=== PATIENT | female | born 1985 | race Caucasian/White ===

== ENCOUNTER 2017-12-17 13:08 | Emergency (ER) | payer OTHER ==
[~2017-12-17] VITALS: Ht 157.5 cm; Wt 79.5 kg
[2017-12-17 13:38] LABS: APPEARANCE,URINE CLOUDY (CLEAR); BILIRUBIN,URINE NEGATIVE (NEGATIVE); GLUCOSE, URINE (UA) NEGATIVE (NEGATIVE); KETONES,URINE NEGATIVE (NEGATIVE); LEUKOCYTE ESTERASE ,URINE MODERATE (NEGATIVE); NITRATE,URINE NEGATIVE (NEGATIVE); OCCULT BLOOD,URINE MODERATE (NEGATIVE); PROTEIN,URINE POS 1+ (NEGATIVE)
[2017-12-17 13:49] LABS: BACTERIA,URINE Moderate /HPF (None Seen); SQUAMOUS EPITHELIAL CELL,UR Few /LPF (None Seen); WBC,URINE 26-50 /HPF (0-5)
[2017-12-17 14:03] VITALS: BP 121/81
== END 2017-12-17 14:27 | disposition home or self-care (01) ==
LOC: EMS 13:09
DX: N39.0 Urinary tract infection, site not specified (principal); Z98.890 Other specified postprocedural states
CPT/HCPCS: 87086; 99284

== ENCOUNTER 2018-06-25 20:51 | Emergency (ER) | payer OTHER ==
[~2018-06-25] VITALS: Ht 157.5 cm; Wt 78.6 kg
[2018-06-25 21:13] VITALS: BP 132/74
[2018-06-25] MEDS ORDERED: KETOROLAC TROMETHAMINE 30 MG/ML VIAL IM ONE (21:15)
== END 2018-06-25 21:55 | disposition home or self-care (01) ==
LOC: EMS 20:52
DX: S40.812A Abrasion of left upper arm, initial encounter (principal); M54.2 Cervicalgia; M54.9 Dorsalgia, unspecified; V89.2XXA Person injured in unspecified motor-vehicle accident, traffic, initial encounter; Y93.89 Activity, other specified; Y92.89 Other specified places as the place of occurrence of the external cause; Y99.8 Other external cause status
CPT/HCPCS: 96372; 99283; J1885

== ENCOUNTER 2018-09-27 20:04 | Emergency (ER) | payer OTHER ==
[~2018-09-27] VITALS: Ht 157.5 cm; Wt 81.8 kg
[2018-09-27] MEDS ORDERED: CYCLOBENZAPRINE HCL 10 MG TABLET PO ONE (21:00)
[2018-09-27] MEDS ORDERED: LIDOCAINE 5% TRANSDERMAL PATCH TD ONE (21:00)
[2018-09-27] MEDS ORDERED: KETOROLAC TROMETHAMINE 60 MG/2 ML VIAL IM ONE (21:00)
[2018-09-27 21:43] VITALS: BP 116/75
== END 2018-09-27 22:16 | disposition home or self-care (01) ==
LOC: EMS 20:05
DX: S76.312A Strain of muscle, fascia and tendon of the posterior muscle group at thigh level, left thigh, initial encounter (principal); M54.5 Low back pain; X50.0XXA Overexertion from strenuous movement or load, initial encounter; Y93.H1 Activity, digging, shoveling and raking; Y92.096 Garden or yard of other non-institutional residence as the place of occurrence of the external cause; Y99.8 Other external cause status
CPT/HCPCS: 96372; 99283; J1885

== ENCOUNTER 2019-02-21 21:25 | Emergency (ER) | payer OTHER | END 2019-02-21 21:30 | disposition left against medical advice (07) | LOC: EMS 21:26 | DX: M54.2 Cervicalgia (principal); Z53.21 Procedure and treatment not carried out due to patient leaving prior to being seen by health care provider ==

== ENCOUNTER 2019-10-10 19:59 | Emergency (ER) | payer OTHER ==
[~2019-10-10] VITALS: Ht 154.9 cm; Wt 84.1 kg
[2019-10-10] MEDS ORDERED: URISOL PO (20:03)
[2019-10-10 21:08] VITALS: BP 112/59
== END 2019-10-10 21:14 | disposition home or self-care (01) ==
LOC: EMS 19:59
DX: R30.0 Dysuria (principal)
CPT/HCPCS: 81002-TC; Z7502

== ENCOUNTER 2019-11-06 11:43 | Emergency (ER) | payer OTHER ==
[~2019-11-06] VITALS: Ht 157.5 cm; Wt 86.4 kg
[~2019-11-06 11:43] MED LIST: URISOL PO
[2019-11-06 12:39] LABS: ANION GAP 6 mmol/L (8-16); CALCIUM, TOTAL 8.6 mg/dL (8.8-10.5); CARBON DIOXIDE 28 mmol/L (22-29); CHLORIDE 103 mmol/L (98-107); CREATININE 0.83 mg/dL (0.60-1.30); GLOMERULAR FILTR. RATE CALC > 60 mL/min (>60); GLUCOSE,RANDOM 112 mg/dL (70-110); POTASSIUM 3.7 mmol/L (3.5-5.1); SODIUM SERUM 137 mmol/L (136-145); UREA NITROGEN, BLOOD 10 mg/dL (7-18)
[2019-11-06] MEDS ORDERED: METOCLOPRAMIDE HCL 5 MG/ML 2 ML VIAL IVP ONE (12:45)
[2019-11-06] MEDS ORDERED: DiphenhydrAMINE HCL 50 MG/ML VIAL IVP ONE (12:45)
[2019-11-06] MEDS ORDERED: SODIUM CHLORIDE 0.9% 1,000 ML IV ONE (12:45)
[2019-11-06 12:52] LABS: ALANINE AMINOTRANSFERASE 25 U/L (12-78); ALBUMIN 3.3 g/dL (3.4-5.0); ALKALINE PHOSPHATASE 60 U/L (46-116); ASPARTATE AMINOTRANSFERASE 15 U/L (15-37); BILIRUBIN,TOTAL 0.3 mg/dL (0.1-1.0); HCG,QUANTITATIVE < 1 mIU/mL (0-6); LIPASE 66 U/L (73-393); TOTAL PROTEIN, SERUM 7.2 g/dL (6.4-8.2)
[2019-11-06 12:58] LABS: BASOPHILS % (AUTO) 0.8 % (0.0-2.0); EOSINOPHILS % (AUTO) 0.5 % (1.0-6.0); HEMATOCRIT 34.5 % (36-46); HEMOGLOBIN 11.2 g/dL (12.0-16.0); LYMPHOCYTES # (AUTO) 1.6 K/uL (1.0-4.8); LYMPHOCYTES % (AUTO) 15.3 % (22.0-44.0); MEAN CORPUSCULAR HEMOGLOBIN 24.5 pg (26.0-34.0); MEAN CORPUSCULAR HGB CONC 32.4 G/dL (31.0-37.0); MEAN CORPUSCULAR VOLUME 76 fL (80-100); MONOCYTES # (AUTO) 0.4 K/uL (0.1-1.0); MONOCYTES % (AUTO) 4.1 % (2.0-9.0); NEUTROPHILS # (AUTO) 8.4 K/uL (1.8-7.7); NEUTROPHILS % (AUTO) 79.3 % (40.0-70.0); PLATELET COUNT (AUTO) 394 K/uL (150-450); RED BLOOD CELL COUNT(AUTO) 4.57 MIL/uL (4.00-5.20); RED CELL DISTRIBUTION WIDTH 17.3 % (11.5-14.5)
[2019-11-06] MEDS ORDERED: KETOROLAC TROMETHAMINE 30 MG/ML VIAL IVP ONE (14:30)
[2019-11-06 15:28] VITALS: BP 102/58
== END 2019-11-06 15:57 | disposition home or self-care (01) ==
LOC: EMS 11:44
DX: G43.909 Migraine, unspecified, not intractable, without status migrainosus (principal); I10 Essential (primary) hypertension
CPT/HCPCS: 36415; 80053; 83690; 84702; 85025; 96361; 96374; 96375; 99284; J1200; J1885; J2765; J7030

== ENCOUNTER 2019-11-30 04:30 | Emergency (ER) | payer OTHER ==
[~2019-11-30] VITALS: Ht 160 cm; Wt 72.7 kg
[2019-11-30 05:13] LABS: BASOPHILS % (AUTO) 0.2 % (0.0-2.0); EOSINOPHILS % (AUTO) 0.4 % (1.0-6.0); HEMATOCRIT 34.9 % (36-46); HEMOGLOBIN 11.5 g/dL (12.0-16.0); LYMPHOCYTES # (AUTO) 1.3 K/uL (1.0-4.8); LYMPHOCYTES % (AUTO) 15.8 % (22.0-44.0); MEAN CORPUSCULAR HEMOGLOBIN 24.6 pg (26.0-34.0); MEAN CORPUSCULAR HGB CONC 32.8 G/dL (31.0-37.0); MEAN CORPUSCULAR VOLUME 75 fL (80-100); MONOCYTES # (AUTO) 0.4 K/uL (0.1-1.0); NEUTROPHILS # (AUTO) 6.7 K/uL (1.8-7.7); NEUTROPHILS % (AUTO) 78.6 % (40.0-70.0); PLATELET COUNT (AUTO) 388 K/uL (150-450); RED BLOOD CELL COUNT(AUTO) 4.66 MIL/uL (4.00-5.20)
[2019-11-30] MEDS ORDERED: SODIUM CHLORIDE 0.9% 1,000 ML IV ONE (05:15)
[2019-11-30 05:25] LABS: ANION GAP 8 mmol/L (8-16); CALCIUM, TOTAL 8.6 mg/dL (8.8-10.5); CARBON DIOXIDE 27 mmol/L (22-29); CHLORIDE 100 mmol/L (98-107); CREATININE 0.87 mg/dL (0.60-1.30); GLOMERULAR FILTR. RATE CALC > 60 mL/min (>60); GLUCOSE,RANDOM 118 mg/dL (70-110); POTASSIUM 4.2 mmol/L (3.5-5.1); SODIUM SERUM 135 mmol/L (136-145); UREA NITROGEN, BLOOD 14 mg/dL (7-18)
[2019-11-30 05:31] LABS: ALANINE AMINOTRANSFERASE 27 U/L (12-78); ALBUMIN 3.2 g/dL (3.4-5.0); ALKALINE PHOSPHATASE 65 U/L (46-116); ASPARTATE AMINOTRANSFERASE 48 U/L (15-37); BILIRUBIN,TOTAL 0.6 mg/dL (0.1-1.0); TOTAL PROTEIN, SERUM 7.6 g/dL (6.4-8.2)
[2019-11-30] MEDS ORDERED: ACETAMINOPHEN 325 MG TABLET PO ONE (06:00)
[2019-11-30 06:18] VITALS: BP 101/50
== END 2019-11-30 06:51 | disposition home or self-care (01) ==
LOC: EMS 04:30
DX: B34.9 Viral infection, unspecified (principal); R51 Headache; J02.9 Acute pharyngitis, unspecified; R19.7 Diarrhea, unspecified; M79.10 Myalgia, unspecified site; Z20.828 Contact with and (suspected) exposure to other viral communicable diseases
CPT/HCPCS: 87426; 96360; 36415-L1; 36415-TC; 71045-TC

== ENCOUNTER 2020-07-29 14:17 | Emergency (ER) | payer MEDICAID, OTHER ==
[~2020-07-29] VITALS: Ht 157.5 cm; Wt 90.9 kg
[2020-07-29 16:29] VITALS: BP 111/75
[2020-07-29] MEDS ORDERED: ACETAMINOPHEN 325 MG TABLET PO ONE (16:30)
== END 2020-07-29 16:38 | disposition home or self-care (01) ==
LOC: EMS 14:21
DX: S06.0X0A Concussion without loss of consciousness, initial encounter (principal); V43.52XA Car driver injured in collision with other type car in traffic accident, initial encounter; Y93.89 Activity, other specified; Y92.89 Other specified places as the place of occurrence of the external cause; Y99.8 Other external cause status
CPT/HCPCS: 70450; 72125; 99285

== ENCOUNTER 2022-01-05 10:14 | Emergency (ER) | payer MEDICAID ==
[~2022-01-05] VITALS: Ht 157.5 cm; Wt 100.0 kg
[2022-01-05] MEDS ORDERED: KETOROLAC TROMETHAMINE 60 MG/2 ML VIAL IM ONE (11:00)
[2022-01-05] MEDS ORDERED: BACLOFEN 10 MG TABLET PO ONE (11:00)
[2022-01-05] MEDS ORDERED: HYDROCODONE/ACETAMINOPHEN 5-325 MG TABLET PO ONE (11:00)
[2022-01-05] MEDS ORDERED: ONDANSETRON HCL 4 MG TABLET PO ONE (13:30)
[2022-01-05] MEDS ORDERED: ACET-2080 PO (13:34)
[2022-01-05] MEDS ORDERED: BACL10TA PO (13:34)
[2022-01-05] MEDS ORDERED: IBUP-1554 PO (13:34)
[2022-01-05 13:44] VITALS: BP 120/72
== END 2022-01-05 13:46 | disposition home or self-care (01) ==
LOC: EMS 10:20
DX: S23.3XXA Sprain of ligaments of thoracic spine, initial encounter (principal); S33.5XXA Sprain of ligaments of lumbar spine, initial encounter; Z98.890 Other specified postprocedural states; V09.20XA Pedestrian injured in traffic accident involving unspecified motor vehicles, initial encounter; Y93.89 Activity, other specified; Y92.89 Other specified places as the place of occurrence of the external cause; Y99.8 Other external cause status
CPT/HCPCS: 99284; 72040; 72070; 72100; 81025; 96372; J1885; Q0162

== ENCOUNTER 2022-03-25 11:12 | Emergency (ER) | payer MEDICAID ==
[~2022-03-25] VITALS: Ht 154.9 cm; Wt 90.9 kg
[~2022-03-25 11:12] MED LIST changes: +ACET-2080 PO; +BACL10TA PO; +IBUP-1554 PO
[2022-03-25 11:22] VITALS: BP 124/78
[2022-03-25 11:31] LABS: COVID AG,FIA SOURCE NASAL SWAB
[2022-03-25] MEDS ORDERED: ALBUTEROL SULFATE HFA 90 MCG/PUFF 8 GM INHALER IH ONE (12:30)
[2022-03-25] MEDS ORDERED: ACETAMINOPHEN 500 MG TABLET PO ONE (12:30)
[2022-03-25 12:44] LABS: INFLUENZA TYPE A NEGATIVE FOR TYPE A (NEGATIVE); INFLUENZA TYPE B NEGATIVE FOR TYPE B (NEGATIVE)
[2022-03-25] MEDS ORDERED: BENZ-70 PO (13:19)
== END 2022-03-25 13:29 | disposition home or self-care (01) ==
LOC: EMS 11:19
DX: R05.9 Cough, unspecified (principal); B34.9 Viral infection, unspecified; Z20.822 Contact with and (suspected) exposure to COVID-19
CPT/HCPCS: 71046; 87804; 94640; 99284; J3535

== ENCOUNTER 2023-07-01 20:54 | Emergency (ER) | payer MEDICAID ==
[~2023-07-01] VITALS: Ht 157.5 cm; Wt 77.3 kg
[~2023-07-01 20:54] MED LIST changes: -ACET-2080 PO; -BACL10TA PO; +BENZ-227 PO; -IBUP-1554 PO; -URISOL PO
[2023-07-01 21:01] VITALS: BP 121/74; PULSE 80; RESP 20; TEMP 98.2
[2023-07-01] MEDS: TraMADol HCL 50 MG TABLET PO ONE (21:09)
[2023-07-01] MEDS ORDERED: CEPH-558 PO (22:46)
== END 2023-07-01 23:09 | disposition home or self-care (01) ==
LOC: EMS 20:57
DX: S61.432A Puncture wound without foreign body of left hand, initial encounter (principal); Z98.890 Other specified postprocedural states; W26.8XXA Contact with other sharp object(s), not elsewhere classified, initial encounter; Y93.89 Activity, other specified; Y92.89 Other specified places as the place of occurrence of the external cause; Y99.8 Other external cause status
CPT/HCPCS: 99283

== ENCOUNTER 2023-08-24 07:22 | Emergency (ER) | payer MEDICAID ==
[~2023-08-24] VITALS: Ht 154.9 cm; Wt 109.1 kg
[~2023-08-24 07:22] MED LIST changes: +CEPH-558 PO
[2023-08-24 07:29] VITALS: TEMP 97.9
[2023-08-24 07:36] LABS: COVID AG,FIA SOURCE NASAL SWAB
[2023-08-24 08:00] LABS: SARS-COV2 (COVID) ANTIGEN,FIA Negative (Negative)
[2023-08-24 08:04] LABS: INFLUENZA TYPE A NEGATIVE FOR TYPE A (NEGATIVE); INFLUENZA TYPE B NEGATIVE FOR TYPE B (NEGATIVE)
[2023-08-24] MEDS: IPRATROPIUM BROMIDE 0.5 MG/2.5 ML NEB SOLUTION NEB ONE (09:34)
[2023-08-24] MEDS: ALBUTEROL SULFATE 2.5 MG/0.5 ML NEB SOLUTION NEB ONE (09:34)
[2023-08-24 09:35] VITALS: PULSE 86; RESP 20; O2SAT 95
[2023-08-24 09:37] VITALS: PULSE 85; RESP 18; O2SAT 95
[2023-08-24] MEDS ORDERED: AZIT250T9 PO (11:27)
[2023-08-24] MEDS ORDERED: ALBU18HF12 IH (11:28)
[2023-08-24] MEDS: ALBUTEROL SULFATE HFA 90 MCG/PUFF 8 GM INHALER IH ONE (11:36)
[2023-08-24 11:37] VITALS: PULSE 68; RESP 16; O2SAT 98
[2023-08-24 11:52] VITALS: BP 120/86; PULSE 62; RESP 16
== END 2023-08-24 11:53 | disposition home or self-care (01) ==
LOC: EMS 07:22
DX: J32.9 Chronic sinusitis, unspecified (principal); J98.4 Other disorders of lung; R05.9 Cough, unspecified; Z20.822 Contact with and (suspected) exposure to COVID-19
CPT/HCPCS: 99285; 71045; 87426; 87804; 94640; J3535

== ENCOUNTER 2023-10-30 09:06 | Emergency (ER) | payer MEDICAID ==
[~2023-10-30] VITALS: Ht 154.9 cm; Wt 109.1 kg
[~2023-10-30 09:06] MED LIST changes: +ALBU18HF12 IH; -BENZ-227 PO; -CEPH-558 PO
[2023-10-30] MEDS ORDERED: IOHEXOL 350 MG/ML 100 ML VIAL ONE (09:30)
[2023-10-30] MEDS ORDERED: SODIUM CHLORIDE 0.9% 100 ML ONE (09:30)
[2023-10-30 09:45] LABS: BASOPHILS % (AUTO) 1.4 % (0.0-2.0); EOSINOPHILS % (AUTO) 2.8 % (1.0-6.0); HEMATOCRIT 29.8 % (36-46); LYMPHOCYTES # (AUTO) 2.1 K/uL (1.0-4.8); LYMPHOCYTES % (AUTO) 21.6 % (22.0-44.0); MEAN CORPUSCULAR HEMOGLOBIN 18.7 pg (26.0-34.0); MEAN CORPUSCULAR HGB CONC 30.3 G/dL (31.0-37.0); MEAN CORPUSCULAR VOLUME 62 fL (80-100); MONOCYTES # (AUTO) 0.4 K/uL (0.1-1.0); MONOCYTES % (AUTO) 4.3 % (2.0-9.0); NEUTROPHILS # (AUTO) 6.9 K/uL (1.8-7.7); NEUTROPHILS % (AUTO) 69.9 % (40.0-70.0); PLATELET COUNT (AUTO) 577 K/uL (150-450); RED BLOOD CELL COUNT(AUTO) 4.83 MIL/uL (4.00-5.20); RED CELL DISTRIBUTION WIDTH 19.7 % (11.5-14.5); WHITE BLOOD COUNT (AUTO) 9.8 K/uL (4.5-11.0)
[2023-10-30] MEDS: MORPHINE SULFATE 2 MG/ML SYRINGE IVP ONE ×2 (09:45→11:13)
[2023-10-30] MEDS: ONDANSETRON HCL 4 MG/2 ML VIAL IVP ONE (09:45)
[2023-10-30] MEDS: SODIUM CHLORIDE 0.9% 1,000 ML IV ONE (09:45)
[2023-10-30 09:55] LABS: ANION GAP 11 mmol/L (8-16); CALCIUM, TOTAL 8.5 mg/dL (8.8-10.5); CARBON DIOXIDE 24 mmol/L (22-29); CHLORIDE 104 mmol/L (98-107); CREATININE 0.93 mg/dL (0.60-1.30); GLOMERULAR FILTR. RATE CALC > 60 mL/min (>60); GLUCOSE,RANDOM 117 mg/dL (70-110); SODIUM SERUM 139 mmol/L (136-145); UREA NITROGEN, BLOOD 10 mg/dL (7-18)
[2023-10-30 10:06] LABS: ALANINE AMINOTRANSFERASE 22 U/L (12-78); ALBUMIN 3.1 g/dL (3.4-5.0); ALKALINE PHOSPHATASE 73 U/L (46-116); ASPARTATE AMINOTRANSFERASE 19 U/L (15-37); BILIRUBIN,TOTAL 0.4 mg/dL (0.1-1.0); HCG,QUANTITATIVE < 1 mIU/mL (0-6); TOTAL PROTEIN, SERUM 7.4 g/dL (6.4-8.2)
[2023-10-30] MEDS ORDERED: SODIUM CHLORIDE 0.9% 1,000 ML IV ONE (10:15)
[2023-10-30 10:45] LABS: RBC MORPHOLOGY COMMENT ABNORMAL RBC MORPH
[2023-10-30 11:55] LABS: APPEARANCE,URINE CLEAR (CLEAR); BILIRUBIN,URINE NEGATIVE (NEGATIVE); COLOR,URINE COLORLESS (YELLOW); GLUCOSE, URINE (UA) NEGATIVE (NEGATIVE); KETONES,URINE NEGATIVE (NEGATIVE); LEUKOCYTE ESTERASE ,URINE NEGATIVE (NEGATIVE); NITRATE,URINE NEGATIVE (NEGATIVE); OCCULT BLOOD,URINE MODERATE (NEGATIVE); PROTEIN,URINE NEGATIVE (NEGATIVE); UROBILINOGEN,URINE <=1.0 mg/dL (<=1.0)
[2023-10-30 12:02] LABS: BACTERIA,URINE None Seen /HPF (None Seen); SQUAMOUS EPITHELIAL CELL,UR Rare /LPF (None Seen); WBC,URINE None Seen /HPF (0-5)
[2023-10-30] MEDS: MORPHINE SULFATE 4 MG/ML SYRINGE IVP ONE (12:29)
[2023-10-30 12:46] VITALS: BP 122/73; PULSE 78; RESP 18; TEMP 98.4
== END 2023-10-30 14:41 | disposition left against medical advice (07) ==
LOC: EMS 09:06
DX: N93.9 Abnormal uterine and vaginal bleeding, unspecified (principal); K59.00 Constipation, unspecified; R10.2 Pelvic and perineal pain; Z90.721 Acquired absence of ovaries, unilateral; Z98.890 Other specified postprocedural states
CPT/HCPCS: 99285; 74177; 96374; 76830; 76856; 96361; 96375; 80048; 80076; 81001; 84702; 85025; 36415; 96376; Q9967; J2270 ×2; J2405; J7030; J7050

== ENCOUNTER 2023-12-16 09:51 | Emergency (ER) | payer MEDICAID ==
[~2023-12-16] VITALS: Ht 157.5 cm; Wt 98.0 kg
[2023-12-16 09:58] VITALS: BP 131/68; PULSE 95; RESP 16; TEMP 98.4; O2SAT 98
== END 2023-12-16 12:51 | disposition left against medical advice (07) ==
LOC: EMS 09:51
DX: M79.601 Pain in right arm (principal); Z53.21 Procedure and treatment not carried out due to patient leaving prior to being seen by health care provider